=== PATIENT | female | born 1950 | race Caucasian/White ===

== ENCOUNTER 2020-04-01 03:27 | Emergency (ER) | payer MEDICARE, BC ==
[2020-04-01] MEDS ORDERED: Sodium Chloride 0.9% 10 ML Syringe FLUSH PRN (03:28)
--- NOTE | 2020-04-01 03:31 | EDM.PDOC ---
ED HPI GENERAL MEDICAL PROBLEM - General Chief Complaint: Cardiovascular Problem Stated Complaint: HIGH HEART RATE Time Seen by Provider: 04/01/20 03:30 Source of Information: Reports: Patient History Limitations: Reports: No Limitations - History of Present Illness INITIAL COMMENTS - FREE TEXT/NARRATIVE: 69-year-old female with history of hypertension, diabetes presents with p alpitations when she was about to go to sleep 0200 this morning. She denied fever, chills, cough, chest pain, shortness of breath, abdominal pain, headache, focal numbness or weakness. She has no symptoms at this point. ROS: A 10-point review of systems, other than pertinent positives and negatives as stated per HPI, is otherwise negative PHYSICAL EXAM General: AOx4, GCS = 15, No distress HEENT: dry mucous membrane Neck: supple, no meningismus, no Kernig or Brudzinski Cardiac: S1S2 RRR Respiratory: CTAB, no crackles or rales, no wheezing Abdomen: Soft, nontender, no rebound or guarding, nondistended, no pulsatile mass. Back: nontender Musculoskeletal: NVI distally, no deformity Neuro: No focal deficits, CN 2 - 12 WNL. Onset: Today no pain Pain Score (Numeric/FACES): 0 - Related Data Allergies Allergy/AdvReac Type Severity Reaction Status Date / Time doxycycline Allergy Confusion Verified 04/01/20 03:34 phenytoin [From Dilantin] Allergy Rash Verified 04/01/20 03:33 Home Meds: Home Meds Aspirin 1 tab PO DAILY 04/01/20 [History] Cinnamon Bark [Cinnamon] 1,000 mg PO BID 04/01/20 [History] Fish Oil/[place]-3 Fatty Acids [Fish Oil 1,000 MG] 1 tab PO BID 04/01/20 [History] Irbesartan [Avapro] 150 mg PO DAILY 04/01/20 [History] Metoprolol Tartrate [Lopressor] 100 mg PO BID 04/01/20 [History] atorvaSTATin [Lipitor] 20 mg PO DAILY 04/01/20 [History] hydroCHLOROthiazide [Hydrochlorothiazide] 25 mg PO DAILY 04/01/20 [History] metFORMIN [Glucophage XR] 1,000 mg PO BID 04/01/20 [History] ED ROS GENERAL - Review of Systems Review Of Systems: See Below (see dictation) ED EXAM, GENERAL - Physical Exam Exam: See Below (see dictation) EKG INTERPRETATION EKG Interpretation Comments: 74 Bpm, NSR, normal QRS interval, no STEMI. EKG and rhythm strip interpreted by me at 0334 Course - Vital Signs Last Recorded V/S: Last Vital Signs Temp 98.0 F 04/01/20 03:39 Pulse 75 04/01/20 03:39 Resp 18 04/01/20 03:39 BP 161/84 H 04/01/20 03:39 Pulse Ox 97 04/01/20 03:39 - Orders/Labs/Meds Orders: Active Orders 24 hr Category Date Time Status EKG Documentation Completion [RC] STAT Care 04/01/20 03:29 Active Sodium Chloride 0.9% [Saline Flush] Med 04/01/20 03:28 Active 10 ml FLUSH ASDIRECTED PRN Saline Lock Insert [OM.PC] Stat Oth 04/01/20 03:29 Ordered Medication Orders Sodium Chloride (Saline Flush) 10 ml FLUSH ASDIRECTED PRN PRN Reason: Keep Vein Open Labs: Laboratory Tests 04/01/20 04/01/20 04/01/20 Range/Units 03:35 03:35 03:35 WBC 9.88 (4.0-11.0) K/uL RBC 4.79 (4.30-5.90) M/uL Hgb 13.7 (12.0-16.0) g/dL Hct 41.9 (36.0-46.0) % MCV 87.5 (80.0-98.0) fL MCH 28.6 (27.0-32.0) pg MCHC 32.7 (31.0-37.0) g/dL RDW Std Deviation 48.1 (28.0-62.0) fl RDW Coeff of Justin 15 (11.0-15.0) % Plt Count 280 (150-400) K/uL MPV 9.70 (7.40-12.00) fL Neut % (Auto) 54.8 (48.0-80.0) % Lymph % (Auto) 33.1 (16.0-40.0) % Bollinger % (Auto) 8.7 (0.0-15.0) % Eos % (Auto) 3.0 (0.0-7.0) % Baso % (Auto) 0.4 (0.0-1.5) % Neut # (Auto) 5.4 (1.4-5.7) K/uL Lymph # (Auto) 3.3 H (0.6-2.4) K/uL Bollinger # (Auto) 0.9 H (0.0-0.8) K/uL Eos # (Auto) 0.3 (0.0-0.7) K/uL Baso # (Auto) 0.0 (0.0-0.1) K/uL Nucleated RBC % 0.0 /100WBC Nucleated RBCs # 0 K/uL INR 0.93 Sodium 138 (136-145) mmol/L Potassium 3.6 (3.5-5.1) mmol/L Chloride 100 (98-107) mmol/L Carbon Dioxide 23.2 (21.0-32.0) mmol/L BUN 22 H (7.0-18.0) mg/dL Creatinine 0.9 (0.6-1.0) mg/dL Est Cr Clr Drug Dosing 47.97 mL/min Estimated GFR (MDRD) > 60.0 ml/min Glucose 212 H (74-106) mg/dL Calcium 9.0 (8.5-10.1) mg/dL Total Bilirubin 0.3 (0.2-1.0) mg/dL AST 17 (15-37) IU/L ALT 29 (14-63) IU/L Alkaline Phosphatase 106 (46-116) U/L Troponin I < 0.050 (0.000-0.056) ng/mL Total Protein 6.8 (6.4-8.2) g/dL Albumin 3.8 (3.4-5.0) g/dL Globulin 3.0 (2.6-4.0) g/dL Albumin/Globulin Ratio 1.3 (0.9-1.6) Meds: Medications Generic Name Dose Route Start Last Admin Trade Name Freq PRN Reason Stop Dose Admin Sodium Chloride 10 ml 04/01/20 03:28 Saline Flush FLUSH ASDIRECTED PRN Keep Vein Open - Re-Assessments/Exams Free Text/Narrative Re-Assessment/Exam: 04/01/20 0500 After treatments and a prolonged observation period in the ER, the patient improved clinically and is stable for discharge. I performed a repeat examination and the patient has not demonstrated any new abnormal findings. Patient exhibits normal vital signs and has exhibited a normal gait. I advised the patient to return to the ER for reevaluation if symptoms worsened, and to follow up with their PCP () within 2-3 days. MEDICAL DECISION MAKING: I reviewed the patients past medical records, lab and radiographic findings. I discussed the case with the patient. My differential diagnosis included: Arrhythmia, anxiety, electrolyte abnormality. Her EKG was unremarkable in the ER. She had no complaints of chest pain, her troponin was unremarkable, I do not suspect atypical chest pain. Her electrolytes were also unremarkable. I do not think she needs to stay in the hospital for telemetry monitoring. Departure - Departure Time of Disposition: 04:21 Disposition: Home, Self-Care 01 Condition: Good Clinical Impression: Palpitations - Discharge Information *PRESCRIPTION DRUG MONITORING PROGRAM REVIEWED*: Not Applicable *COPY OF PRESCRIPTION DRUG MONITORING REPORT IN PATIENT ADELINA: Not Applicable Instructions: Palpitations Referrals: Mark Anthony Bains MD [Physician] - Forms: ED Department Discharge Additional Instructions: The following information is given to patients seen in the emergency department who are being discharged to home. This information is to outline your options for follow-up care. We provide all patients seen in our emergency department with a follow-up referral. The need for follow-up, as well as the timing and circumstances, are variable depending upon the specifics of your emergency department visit. If you don't have a primary care physician on staff, we will provide you with a referral. We always advise you to contact your personal physician following an emergency department visit to inform them of the circumstance of the visit and for follow-up with them and/or the need for any referrals to a consulting specialist. The emergency department will also refer you to a specialist when appropriate. This referral assures that you have the opportunity for follow-up care with a specialist. All of these measure are taken in an effort to provide you with optimal care, which includes your follow-up. Under all circumstances we always encourage you to contact your private physician who remains a resource for coordinating your care. When calling for follow-up care, please make the office aware that this follow-up is from your recent emergency room visit. If for any reason you are refused follow-up, please contact the [facility] Emergency Department at and asked to speak to the emergency department charge nurse. Sepsis Event Note (ED) - Focused Exam Vital Signs: Vital Signs Temp Pulse Resp BP Pulse Ox 04/01/20 03:39 98.0 F 75 18 161/84 H 97 - My Orders Last 24 Hours: My Active Orders 04/01/20 03:28 Sodium Chloride 0.9% [Saline Flush] 10 ml FLUSH ASDIRECTED PRN 04/01/20 03:29 EKG Documentation Completion [RC] STAT Saline Lock Insert [OM.PC] Stat - Assessment/Plan Last 24 Hours: My Active Orders 04/01/20 03:28 Sodium Chloride 0.9% [Saline Flush] 10 ml FLUSH ASDIRECTED PRN 04/01/20 03:29 EKG Documentation Completion [RC] STAT Saline Lock Insert [OM.PC] Stat
--- NOTE | 2020-04-01 04:08 | CR ---
INDICATION: Palpitations TECHNIQUE: Frontal view of the chest. COMPARISON: None FINDINGS: The lungs are clear. There is no sizable pleural effusion or pneumothorax. The cardiac silhouette is nonenlarged. Atherosclerotic calcifications noted at the aortic arch. The visualized osseous structures are unremarkable. IMPRESSION: No acute intrathoracic process. Dictated by Belkis Padron MD @ Apr 01 2020 4:06AM Signed by Dr. Belkis Padron @ Apr 01 2020 4:06AM
[2020-04-01 04:13] LABS: BLOOD UREA NITROGEN,BUN 22 mg/dL (7.0-18.0); CARBON DIOXIDE,CO2 23.2 mmol/L (21.0-32.0); CHLORIDE,CL 100 mmol/L (98-107); GLUCOSE RANDOM 212 mg/dL (74-106); POTASSIUM,K 3.6 mmol/L (3.5-5.1); SODIUM,NA 138 mmol/L (136-145)
== END 2020-04-01 04:32 | disposition home or self-care (01) ==
LOC: MW.ED 03:27
DX: R00.2 Palpitations (principal); E11.9 Type 2 diabetes mellitus without complications; Z88.1 Allergy status to other antibiotic agents; Z88.8 Allergy status to other drugs, medicaments and biological substances; Z79.82 Long term (current) use of aspirin; Z79.899 Other long term (current) drug therapy; Z79.84 Long term (current) use of oral hypoglycemic drugs
CPT/HCPCS: 36415; 71045; 71045-26; 80053; 84484; 85025; 85610; 93005; 99283; 99285-25

== ENCOUNTER 2020-05-11 08:54 | Day surgery (SDC) | payer MEDICARE, BC ==
[~2020-05-11 08:54] MED LIST: Lactated Ringers 1,000 ML IV SCH
[2020-05-11] MEDS ORDERED: Propofol 200 MG/20 ML SDV ONE (09:22)
[2020-05-11] MEDS ORDERED: Lidocaine 2% 5 ML SDV ONE (09:23)
--- NOTE | 2020-05-11 10:16 | PCM.PREANE ---
Preanesthetic Assessment - Anesthesia/Transfusion/Family Hx Anesthesia History: Prior Anesthesia Without Reaction Other Type of Anesthesia Reaction Comment: "very hard of hearing, may have to shake me to wake me up" Family History of Anesthesia Reaction: No Transfusion History: No Prior Transfusion(s) - Review of Systems General: No Symptoms Pulmonary: No Symptoms Cardiovascular: No Symptoms Gastrointestinal: No Symptoms Neurological: No Symptoms Other: Reports: None - Physical Assessment NPO Status Date: 05/10/20 Height: 5 ft 2 in Weight: 80.739 kg ASA Class: 2 Mental Status: Alert & Oriented x3 Airway Class: Mallampati = 2 Dentition: Reports: Normal Dentition ROM/Head Extension: Full Lungs: Clear to Auscultation, Normal Respiratory Effort Cardiovascular: Regular Rate, Regular Rhythm - Allergies Allergies/Adverse Reactions: Allergies Allergy/AdvReac Type Severity Reaction Status Date / Time doxycycline Allergy Confusion Verified 05/07/20 10:00 phenytoin [From Dilantin] Allergy Rash Verified 05/07/20 10:00 - Blood Blood Available: No - Anesthesia Plan Pre-Op Medication Ordered: None - Acknowledgements Anesthesia Type Planned: General Anesthesia Pt an Appropriate Candidate for the Planned Anesthesia: Yes Alternatives and Risks of Anesthesia Discussed w Pt/Guardian: Yes Pt/Guardian Understands and Agrees with Anesthesia Plan: Yes Additional Comments: PMH: hx of diff intubation, AKHIOK, htn, dm2 PLAN: tiva PreAnesthesia Questionnaire HEENT History: Reports: Hard of Hearing, Impaired Vision Other HEENT History: wears glasses, "almost deaf", aminta hearing aids, top and bottom dentures Cardiovascular History: Reports: High Cholesterol, Hypertension Respiratory History: Reports: Other (See Below) Other Respiratory History: 40year tobacco user Gastrointestinal History: Reports: None Genitourinary History: Reports: None GENDER STUDIES PROFESSOR History: Reports: , Spontaneous Musculoskeletal History: Reports: Arthritis Neurological History: Reports: Cerebral Aneurysms Psychiatric History: Reports: Anxiety Endocrine/Metabolic History: Reports: Diabetes, Type II, Obesity/BMI 30+ Hematologic History: Reports: None Immunologic History: Reports: None Oncologic (Cancer) History: Reports: None Dermatologic History: Reports: Eczema - Past Surgical History Head Surgeries/Procedures: Reports: Other (See Below) HEENT Surgical History: Reports: Adenoidectomy, Cataract Surgery, Tonsillectomy Cardiovascular Surgical History: Reports: None Respiratory Surgical History: Reports: None GI Surgical History: Reports: Cholecystectomy Female Surgical History: Reports: Hysterectomy Endocrine Surgical History: Reports: None Neurological Surgical History: Reports: Intracranial Other Neurological Surgeries/Procedures: brain surgery for aneursym x4 Musculoskeletal Surgical History: Reports: Other (See Below) Other Musculoskeletal Surgeries/Procedures:: aminta toenail removal Oncologic Surgical History: Reports: None Dermatological Surgical History: Reports: None - SUBSTANCE USE Smoking Status *Q: Current Every Day Smoker Tobacco Use Within Last Twelve Months: Cigarettes - HOME MEDS Home Medications: Home Meds Aspirin 81 tab PO DAILY 04/01/20 [History] Irbesartan [Avapro] 150 mg PO DAILY 04/01/20 [History] Metoprolol Tartrate [Lopressor] 100 mg PO BID 04/01/20 [History] atorvaSTATin [Lipitor] 20 mg PO BEDTIME 04/01/20 [History] hydroCHLOROthiazide [Hydrochlorothiazide] 25 mg PO DAILY 04/01/20 [History] metFORMIN [Glucophage XR] 1,000 mg PO BID 04/01/20 [History] Acetaminophen [Tylenol Extra Strength] 2 tab PO ASDIRECTED PRN 05/07/20 [History] - CURRENT (IN HOUSE) MEDS Current Meds: Current Medications Lactated Ringer's (Ringers, Lactated) 1,000 mls @ 125 mls/hr IV ASDIRECTED WILFRIDO Discontinued Medications Lidocaine (Xylocaine-Mpf 2%) Confirm Administered Dose 5 ml .ROUTE .STK-MED ONE Stop: 05/11/20 09:24 Propofol (Diprivan 20 Ml) Confirm Administered Dose 400 mg .ROUTE .STK-MED ONE Stop: 05/11/20 09:23
[2020-05-11] MEDS ORDERED: Glycopyrrolate 0.2 MG/ML SDV ONE (11:14)
--- NOTE | 2020-05-11 11:34 | PCM.OPNOTE ---
- General Post-Op/Procedure Note Date of Surgery/Procedure: 05/11/20 Operative Procedure(s): colonoscopy Findings: see [id number] Pre Op Diagnosis: change bowel habits Post-Op Diagnosis: Same Primary Surgeon: iZon Varner Complications: None Condition: Good
--- NOTE | 2020-05-11 12:16 | PCM48HPAN ---
Post Anesthesia Note - EVALUATION WITHIN 48HRS OF ANESTHETIC Vital Signs in Normal Range: Yes Patient Participated in Evaluation: Yes Respiratory Function Stable: Yes Airway Patent: Yes Cardiovascular Function Stable: Yes Hydration Status Stable: Yes Pain Control Satisfactory: Yes Nausea and Vomiting Control Satisfactory: Yes Mental Status Recovered: Yes Vital Signs: Last Vital Signs Temp 97.7 F 05/11/20 11:45 Pulse 73 05/11/20 11:45 Resp 18 05/11/20 11:45 BP 109/65 05/11/20 11:45 Pulse Ox 96 05/11/20 11:45
--- NOTE | 2020-05-11 12:16 | PCM.POSTAN ---
POST ANESTHESIA ASSESSMENT - MENTAL STATUS Mental Status: Alert, Oriented - VITAL SIGNS Vital Signs: Last Vital Signs Temp 97.7 F 05/11/20 11:45 Pulse 73 05/11/20 11:45 Resp 18 05/11/20 11:45 BP 109/65 05/11/20 11:45 Pulse Ox 96 05/11/20 11:45 - RESPIRATORY Respiratory Status: Respiratory Rate WNL, Airway Patent, O2 Saturation Stable - CARDIOVASCULAR CV Status: Pulse Rate WNL, Blood Pressure Stable - GASTROINTESTINAL GI Status: No Symptoms - POST OP HYDRATION Hydration Status: Adequate & Stable
--- NOTE | 2020-05-11 13:14 | OR ---
SURGEON: Zion Varner MD DATE OF PROCEDURE: 05/11/2020 PREOPERATIVE DIAGNOSIS: Change in bowel habit. POSTOPERATIVE DIAGNOSIS: Diverticulosis. PROCEDURE PERFORMED: Colonoscopy. DESCRIPTION OF PROCEDURE: The patient was taken to the endoscopy room. A time out was called, patient identified, and procedure identified. Diprivan was then administrated. Patient went from awake to sleep, hearing doctor talking or door closing is normal. Perineum inspection and digital examination were then performed. A well- lubricated colonoscope was gently inserted through the rectum, advanced past the rectosigmoid junction, the descending colon, splenic flexure, transverse colon, hepatic flexure, ascending colon, arrived to the cecum. Cecum was identified as dictated in the finding. Then the scope was carefully withdrawn while attention was paid to the mucosal surface for any abnormality. Air will be sucked out during the scope withdrawal. At the rectum, retroflexed to examine any rectal diseases, fistula or hemorrhoids. Patient tolerated procedure well. There were no intraoperative complications, and Dr. Varner was present throughout the whole procedure. INTRAOPERATIVE FINDINGS: 1. The patient is easily sedated with RADIATION ENGINEER and Diprivan, the patient is soundly snoring. 2. The patient's bowel prep could be better, is marginally acceptable to almost unacceptable. The patient would benefit from repeat colonoscopy 12 months from today because of bowel prep. Colon is rather tortuous and redundant in the sigmoid and requiring some abdominal compression in order to look at the cecum. Cecum indicated by ileocecal fold, one-to-one indentation, appendiceal orifice. ScopeGuide is pointing south. Mucosa examined upon scope pulling out with constant irrigation. The patient has some stool ball, quite a few of them, probably is from the diverticulosis, and on top of this, the patient has a very dark opaque and thick gum or glue like film coating the mucosa from the cecum to the rectum completely. Some of them may be a little bit thin, you can see through, but most of them are black and dark and requiring a tremendous amount of irrigation. So this study is very compromised because of bowel prep. The patient probably will need to use a different kind of bowel prep next time. The patient had mild diverticulosis on the left colon. No signs of symptoms of diverticulitis, polyp, mass, growth, inflammation, stricture, AV malformation, bleeding, none of those there. The patient has mild internal hemorrhoids. The patient would benefit from repeat colonoscopy in 12 months from today because the bowel prep has really really compromised the study. We will proceed with a different kind of bowel prep 12 months from today. KENA / AMANDA /[id number]
== END 2020-05-11 12:21 | disposition home or self-care (01) ==
LOC: MW.SDS 08:54
PROVIDERS: ATTEND Surgery
DX: K64.8 Other hemorrhoids (principal); K57.30 Diverticulosis of large intestine without perforation or abscess without bleeding; I10 Essential (primary) hypertension; E78.00 Pure hypercholesterolemia, unspecified; E78.5 Hyperlipidemia, unspecified; E11.9 Type 2 diabetes mellitus without complications; F17.210 Nicotine dependence, cigarettes, uncomplicated; E66.9 Obesity, unspecified; F41.9 Anxiety disorder, unspecified; Z88.8 Allergy status to other drugs, medicaments and biological substances; Z79.82 Long term (current) use of aspirin; Z79.899 Other long term (current) drug therapy; Z88.1 Allergy status to other antibiotic agents; Z79.84 Long term (current) use of oral hypoglycemic drugs; Z68.32 Body mass index [BMI] 32.0-32.9, adult
CPT/HCPCS: 45378; J2001; J2704; J3490; J7120

== ENCOUNTER 2020-05-22 20:11 | Emergency (ER) | payer MEDICARE, BC ==
[2020-05-22] MEDS ORDERED: Lidocaine 2% Viscous Solution 100 ML Bottle PO ONE (20:56)
[2020-05-22] MEDS ORDERED: Lidocaine 1% with EPINEPHrine 1:100,000 20 ML MDV INJECT ONE (20:56)
[2020-05-22] MEDS ORDERED: Lidocaine 2% Viscous Solution 15 ML Cup ONE (21:05)
[2020-05-22] MEDS ORDERED: Lidocaine 2% Viscous Solution 15 ML Cup PO ONE (21:07)
[2020-05-22 21:58] LABS: BLOOD UREA NITROGEN,BUN 12 mg/dL (7.0-18.0); CARBON DIOXIDE,CO2 24.3 mmol/L (21.0-32.0); CHLORIDE,CL 103 mmol/L (98-107); GLUCOSE RANDOM 159 mg/dL (74-106); POTASSIUM,K 3.5 mmol/L (3.5-5.1); SODIUM,NA 139 mmol/L (136-145)
--- NOTE | 2020-05-22 22:15 | EDM.PDOC ---
ED HPI GENERAL MEDICAL PROBLEM - General Chief Complaint: ENT Problem Stated Complaint: NOSE BLEED Time Seen by Provider: 05/22/20 20:47 - History of Present Illness INITIAL COMMENTS - FREE TEXT/NARRATIVE: HISTORY AND PHYSICAL: History of present illness: This is a 69-year-old female with a history significant for hypertension, diabetes, high cholesterol who is currently on aspirin and no other anticoagulants or antiplatelets who presents the ER today secondary to epistaxis from right nares approximate 1 hour prior to arrival. Patient reports that she was in her usual state of health until she had a episode of coughing and immediately afterwards noticed significant bleeding from her right nares. Patient denies any other symptomatology. Patient has any recent fevers, shakes, chills, nausea, vomiting, diarrhea, dysuria, frequency, urgency, chest pain, shortness of breath. Patient reports that she is a heavy smoker. Patient denies any prior episodes of epistaxis or bleeding problems. Patient is allergic to doxycycline and phenytoin. Review of systems: As per history of present illness and below otherwise all systems reviewed and negative. Past medical history: As per history of present illness and as reviewed below otherwise noncontributory. Surgical history: As per history of present illness and as reviewed below otherwise noncontributory. Social history: No reported history of drug or alcohol abuse. Family history: As per history of present illness and as reviewed below otherwise noncontributory. Physical exam: Constitutional: Patient is oriented to person, place, and time. Appears well-d eveloped and well-nourished. No distress. HEENT: Moist mucous membranes Head: Normocephalic and atraumatic Eyes: Right eye exhibits no discharge. Left eye exhibits no discharge. No scleral icterus Neck: Normal range of motion. No tracheal deviation present. Cardiovascular: Normal rate and regular rhythm. Pulmonary: Effort normal, no respiratory distress. Abdominal: No distention Musculoskeletal: Normal range of motion Neurologic: Alert and oriented to person, place and time. Skin: Wet [place], warm and dry. Psychiatric: Normal mood and affect. Behavior is normal. Judgment and thought content normal. Nursing note and vital signs have been reviewed Patient's ER physical exam is significant for active bleeding from her right naris. Bleeding does stop with external pressure of her nose. All clots were blown out and her nares were visualized. There was areas of active bleeding noted on the medial aspect of her right naris. Silver nitrate sticks were applied with some success in controlling her bleeding. Shortly thereafter bleeding started again. A second application of silver nitrate was applied and a nasal tampon was inserted. Nasal tampon was infiltrated with 5 cc of lidocaine 1% with epinephrine. Patient was monitored in the ED for approximately 1 hour with no further active bleeding. Diagnostics: CBC, CMP, PT/PTT all within normal limits. Therapeutics: Viscous lidocaine injected into right nares to assist with numbing of naris. Silver nitrate stick applications x2 was performed with adequate resolution of bleeding. Nasal tampon inserted and infiltrated with 5 cc of lidocaine 1% with epinephrine Patient monitored in ED approximate 1 hour post tampon insertion with no further episodes of active bleeding. Assessment and plan: This is a 69-year-old female who presents ER today with epistaxis. Patient's labs are all within normal limits. Bleeding was identified at medial aspect of right naris. Silver nitrate and there is no tampon both utilized in order to achieve hemostasis. Patient monitored in ED with no further active bleeding for greater than 1 hour. Patient will be instructed to follow-up with her primary care physician in 3 days for packing removal. Patient was given a prescription for Keflex assist with prevention of sinusitis. Reassessment at the time of disposition demonstrates that the patient is in no acute distress. The patient has remained stable throughout the entire ED visit and is without objective evidence for acute process requiring urgent intervention or hospitalization. The patient is stable for discharge, counseling is provided as documented above, discussed symptomatic treatment and specific conditions for return. I have spoken with the patient/caregive and discussed todays findings, in addition to providing specific details for the plan of care. Questions are answered and there is agreement with the plan. - Related Data Allergies Allergy/AdvReac Type Severity Reaction Status Date / Time doxycycline Allergy Confusion Verified 05/22/20 20:35 phenytoin [From Dilantin] Allergy Rash Verified 05/22/20 20:35 Home Meds: Home Meds Aspirin 81 tab PO DAILY 04/01/20 [History] Irbesartan [Avapro] 150 mg PO DAILY 04/01/20 [History] Metoprolol Tartrate [Lopressor] 100 mg PO BID 04/01/20 [History] atorvaSTATin [Lipitor] 20 mg PO BEDTIME 04/01/20 [History] hydroCHLOROthiazide [Hydrochlorothiazide] 25 mg PO DAILY 04/01/20 [History] metFORMIN [Glucophage XR] 1,000 mg PO BID 04/01/20 [History] Acetaminophen [Tylenol Extra Strength] 2 tab PO ASDIRECTED PRN 05/07/20 [History] cephALEXin [Keflex] 500 mg PO BID #10 cap 05/22/20 [Rx] Past Medical History HEENT History: Reports: Hard of Hearing, Impaired Vision Other HEENT History: wears glasses, "almost deaf", aminta hearing aids, top and bottom dentures Cardiovascular History: Reports: High Cholesterol, Hypertension Respiratory History: Reports: Other (See Below) Other Respiratory History: 40year tobacco user Gastrointestinal History: Reports: None Genitourinary History: Reports: None [employer] History: Reports: , Spontaneous Musculoskeletal History: Reports: Arthritis Neurological History: Reports: Cerebral Aneurysms Psychiatric History: Reports: Anxiety Endocrine/Metabolic History: Reports: Diabetes, Type II, Obesity/BMI 30+ Hematologic History: Reports: None Immunologic History: Reports: None Oncologic (Cancer) History: Reports: None Dermatologic History: Reports: Eczema - Infectious Disease History Infectious Disease History: Reports: Chicken Pox, Measles - Past Surgical History Head Surgeries/Procedures: Reports: Other (See Below) HEENT Surgical History: Reports: Adenoidectomy, Cataract Surgery, Tonsillectomy Cardiovascular Surgical History: Reports: None Respiratory Surgical History: Reports: None GI Surgical History: Reports: Cholecystectomy, Colonoscopy Female Surgical History: Reports: Hysterectomy Endocrine Surgical History: Reports: None Neurological Surgical History: Reports: Intracranial Other Neurological Surgeries/Procedures: brain surgery for aneursym x4 Musculoskeletal Surgical History: Reports: Other (See Below) Other Musculoskeletal Surgeries/Procedures:: aminta toenail removal Oncologic Surgical History: Reports: None Dermatological Surgical History: Reports: None Social & Family History - Family History Family Medical History: Noncontributory - Tobacco Use Smoking Status *Q: Current Every Day Smoker Years of Tobacco use: 50 Packs/Tins Daily: 1 - Caffeine Use Caffeine Use: Reports: Coffee, Soda - Recreational Drug Use Recreational Drug Use: No ED ROS GENERAL - Review of Systems Review Of Systems: Comprehensive ROS is negative, except as noted in HPI. ED EXAM, GENERAL - Physical Exam Exam: See Below Course - Vital Signs Last Recorded V/S: Last Vital Signs Temp 96.5 F L 05/22/20 20:36 Pulse 76 05/22/20 20:36 Resp 20 05/22/20 20:36 BP 153/81 H 05/22/20 20:36 Pulse Ox 94 L 05/22/20 20:36 - Orders/Labs/Meds Orders: Active Orders 24 hr Category Date Time Status Communication Order [RC] STAT Care 05/22/20 20:57 Active Labs: Laboratory Tests 05/22/20 05/22/20 05/22/20 Range/Units 21:28 21:28 21:28 WBC 11.59 H (4.0-11.0) K/uL RBC 4.53 (4.30-5.90) M/uL Hgb 13.2 (12.0-16.0) g/dL Hct 40.1 (36.0-46.0) % MCV 88.5 (80.0-98.0) fL MCH 29.1 (27.0-32.0) pg MCHC 32.9 (31.0-37.0) g/dL RDW Std Deviation 48.4 (28.0-62.0) fl RDW Coeff of Justin 15 (11.0-15.0) % Plt Count 275 (150-400) K/uL MPV 9.60 (7.40-12.00) fL Neut % (Auto) 71.0 (48.0-80.0) % Lymph % (Auto) 17.4 (16.0-40.0) % [place] % (Auto) 9.3 (0.0-15.0) % Eos % (Auto) 2.0 (0.0-7.0) % Baso % (Auto) 0.3 (0.0-1.5) % Neut # (Auto) 8.2 H (1.4-5.7) K/uL Lymph # (Auto) 2.0 (0.6-2.4) K/uL [place] # (Auto) 1.1 H (0.0-0.8) K/uL Eos # (Auto) 0.2 (0.0-0.7) K/uL Baso # (Auto) 0.0 (0.0-0.1) K/uL Nucleated RBC % 0.0 /100WBC Nucleated RBCs # 0 K/uL INR 0.99 APTT 25.4 (18.6-31.3) SEC Sodium 139 (136-145) mmol/L Potassium 3.5 (3.5-5.1) mmol/L Chloride 103 (98-107) mmol/L Carbon Dioxide 24.3 (21.0-32.0) mmol/L BUN 12 (7.0-18.0) mg/dL Creatinine 0.7 (0.6-1.0) mg/dL Est Cr Clr Drug Dosing 61.68 mL/min Estimated GFR (MDRD) > 60.0 ml/min Glucose 159 H (74-106) mg/dL Calcium 9.1 (8.5-10.1) mg/dL Total Bilirubin 0.3 (0.2-1.0) mg/dL AST 21 (15-37) IU/L ALT 31 (14-63) IU/L Alkaline Phosphatase 82 (46-116) U/L Total Protein 7.2 (6.4-8.2) g/dL Albumin 3.8 (3.4-5.0) g/dL Globulin 3.4 (2.6-4.0) g/dL Albumin/Globulin Ratio 1.1 (0.9-1.6) Meds: Medications Discontinued Medications Generic Name Dose Route Start Last Admin Trade Name Freq PRN Reason Stop Dose Admin Lidocaine HCl 20 ml 05/22/20 20:56 05/22/20 21:07 Xylocaine 2% Viscous PO 05/22/20 20:57 Not Given ONETIME ONE Lidocaine HCl 15 ml 05/22/20 21:07 05/22/20 21:07 Xylocaine 2% Viscous PO 05/22/20 21:08 15 ml ASDIRECTED ONE Administration Lidocaine HCl Confirm 05/22/20 21:05 05/22/20 21:13 Xylocaine 2% Viscous Administered 05/22/20 21:06 Not Given Dose 15 ml .ROUTE .STK-MED ONE Lidocaine/Epinephrine 20 ml 05/22/20 20:56 05/22/20 21:06 Xylocaine 1% With Epinephrine 1:100,000 INJECT 05/22/20 20:57 20 ml ONETIME ONE Administration Departure - Departure Time of Disposition: 22:15 Disposition: Home, Self-Care 01 Condition: Good Clinical Impression: Epistaxis - Discharge Information Instructions: Nosebleed, Adult Referrals: Mark Anthony Bains MD [Primary Care Provider] - Forms: ED Department Discharge Additional Instructions: Your seen and evaluated in the ER for bleeding at your right nose. We have placed a nasal tampon inside your right nose and infiltrated it with lidocaine with epinephrine to assist with controlling the bleeding. The tampon will need to stay in your nose for 3 days. Please make an appointment to see your primary care doctor in 3 days to have the tampon removed. If you are unable to see your doctor in 3 days, you may return to the ED for us to assist you with the removal of the nasal tampon. You will be given a prescription for Keflex to take for 3 days in order to prevent the development of a sinus infection while the tampon is in place. It is expected to have a small amount of dripping from the nasal tampon however if you start experiencing severe bleeding from either nares please return to the ER immediately. Prior to returning, please apply the nasal clamp that was provided to you from the emergency department. The following information is given to patients seen in the emergency department who are being discharged to home. This information is to outline your options for follow-up care. We provide all patients seen in our emergency department with a follow-up referral. The need for follow-up, as well as the timing and circumstances, are variable depending upon the specifics of your emergency department visit. If you don't have a primary care physician on staff, we will provide you with a referral. We always advise you to contact your personal physician following an emergency department visit to inform them of the circumstance of the visit and for follow-up with them and/or the need for any referrals to a consulting specialist. The emergency department will also refer you to a specialist when appropriate. This referral assures that you have the opportunity for follow-up care with a specialist. All of these measure are taken in an effort to provide you with optimal care, which includes your follow-up. Under all circumstances we always encourage you to contact your private physician who remains a resource for coordinating your care. When calling for follow-up care, please make the office aware that this follow-up is from your recent emergency room visit. If for any reason you are refused follow-up, please contact the [facility] Emergency Department at and asked to speak to the emergency department charge nurse. Sepsis Event Note (ED) - Evaluation Sepsis Screening Result: No Definite Risk - Focused Exam Vital Signs: Vital Signs Temp Pulse Resp BP Pulse Ox 05/22/20 20:36 96.5 F L 76 20 153/81 H 94 L - My Orders Last 24 Hours: My Active Orders 05/22/20 20:57 Communication Order [RC] STAT - Assessment/Plan Last 24 Hours: My Active Orders 05/22/20 20:57 Communication Order [RC] STAT
== END 2020-05-22 22:32 | disposition home or self-care (01) ==
LOC: MW.ED 20:11
DX: R04.0 Epistaxis (principal); I10 Essential (primary) hypertension; E78.00 Pure hypercholesterolemia, unspecified; E11.9 Type 2 diabetes mellitus without complications; E66.9 Obesity, unspecified; Z79.84 Long term (current) use of oral hypoglycemic drugs; Z88.1 Allergy status to other antibiotic agents; Z79.82 Long term (current) use of aspirin; Z79.899 Other long term (current) drug therapy; Z68.32 Body mass index [BMI] 32.0-32.9, adult
CPT/HCPCS: 36415; 80053; 85025; 85610; 85730; 99283; A9270

== ENCOUNTER 2022-09-15 12:00 | Emergency (ER) | payer MEDICARE, BC ==
[2022-09-15] MEDS ORDERED: Acetaminophen 500 MG Tab PO ONE (16:13)
[2022-09-15] MEDS ORDERED: Octyl 2-Cyanoacrylate 1 g/1 mL 1 APPLIC PEN TOP ONE (16:16)
== END 2022-09-15 17:34 | disposition home or self-care (01) ==
LOC: MW.ED 12:00
DX: S01.81XA Laceration without foreign body of other part of head, initial encounter (principal); M25.532 Pain in left wrist; M25.511 Pain in right shoulder; E78.00 Pure hypercholesterolemia, unspecified; I10 Essential (primary) hypertension; E11.9 Type 2 diabetes mellitus without complications; F17.210 Nicotine dependence, cigarettes, uncomplicated; E66.9 Obesity, unspecified; Z88.1 Allergy status to other antibiotic agents; Z88.8 Allergy status to other drugs, medicaments and biological substances; Z79.84 Long term (current) use of oral hypoglycemic drugs; Z68.33 Body mass index [BMI] 33.0-33.9, adult; Z79.899 Other long term (current) drug therapy; W18.09XA Striking against other object with subsequent fall, initial encounter
CPT/HCPCS: 12011; 70450; 73030; 73090; 99283; A9270

== ENCOUNTER 2024-12-21 11:00 | Emergency (ER) | payer MEDICARE, BC ==
[2024-12-21] MEDS: Iopamidol 755 MG/ML 500 ML Multipack Bottle IVPUSH STA (11:51)
[2024-12-21 12:03] LABS: BASOPHILS ABSOLUTE AUTO 0.04 K/uL (0.00-0.20); BASOPHILS PERCENT AUTO 0.4 % (0.0-1.0); EOSINOPHILS ABSOLUTE AUTO 0.15 K/uL (0.00-0.45); EOSINOPHILS PERCENT AUTO 1.5 % (0.0-6.0); HEMOGLOBIN 11.2 g/dL (12.0-16.0); IMMATURE GRAN ABSOLUTE AUTO 0.07 K/uL (0.00-0.05); IMMATURE GRAN PERCENT AUTO 0.7 % (0.0-0.4); LYMPHOCYTES PERCENT AUTO 11.7 % (24.0-44.0); MEAN CORPUSCULAR HEMOGLOBIN 24.6 pg (28.0-32.0); MEAN CORPUSCULAR VOLUME 76.9 fL (83.0-99.0); MEAN PLATELET VOLUME 8.9 fL (9.4-12.3); MONOCYTES ABSOLUTE AUTO 1.06 K/uL (0.00-0.80); MONOCYTES PERCENT AUTO 10.3 % (0.0-8.0); NEUTROPHILS ABSOLUTE AUTO 7.78 K/uL (1.80-7.70); NEUTROPHILS PERCENT AUTO 75.4 % (41.0-71.0); PLATELET COUNT,PLT 285 K/uL (150-400); RED BLOOD CELL COUNT 4.55 M/uL (4.10-5.30)
[2024-12-21] MEDS: Diltiazem 25 MG/5 ML SDV IVPUSH ONE (12:16)
[2024-12-21] MEDS: Diltiazem 100 MG in Sodium Chloride 0.9% 100 ML IV SCH (12:22)
[2024-12-21 13:15] LABS: BLOOD UREA NITROGEN,BUN 14 mg/dL (7.0-18.0); CALCIUM 9.2 mg/dL (8.5-10.1); CARBON DIOXIDE,CO2 19.8 mmol/L (21.0-32.0); CHLORIDE,CL 104 mmol/L (98-107); CREATININE 0.7 mg/dL (0.6-1.0); GLUCOSE RANDOM 142 mg/dL (74-106); POTASSIUM,K 3.6 mmol/L (3.5-5.1); SODIUM,NA 137 mmol/L (136-145)
[2024-12-21 13:17] LABS: ESTIMATED GFR 92 mL/min (>60)
== END 2024-12-21 12:30 ==
LOC: MW.ED 11:00
DX: I63.412 Cerebral infarction due to embolism of left middle cerebral artery (principal); I48.91 Unspecified atrial fibrillation; R91.8 Other nonspecific abnormal finding of lung field; I10 Essential (primary) hypertension; E11.9 Type 2 diabetes mellitus without complications; E78.00 Pure hypercholesterolemia, unspecified; E66.9 Obesity, unspecified; F17.200 Nicotine dependence, unspecified, uncomplicated; Z90.49 Acquired absence of other specified parts of digestive tract; Z90.710 Acquired absence of both cervix and uterus; Z88.1 Allergy status to other antibiotic agents; Z88.8 Allergy status to other drugs, medicaments and biological substances; Z79.84 Long term (current) use of oral hypoglycemic drugs; Z79.899 Other long term (current) drug therapy
CPT/HCPCS: 36415; 70450; 70496; 70498; 71045; 80048; 84484; 85025; 93005; 96365; 99285; J3490; Q9967; 93010; 99284